=== PATIENT | female | born 1965 | race Caucasian/White ===

== ENCOUNTER 2018-02-13 14:16 | Outpatient (CLI) | payer OTHER ==
--- NOTE | 2018-02-13 16:09 | Ultrasound Report ---
Procedure Date: 02/13/2018 Accession Number: [id number] / [id number] Procedure: US - Breast Unilateral Limited CPT Code: FULL RESULT: EXAM: Breast Unilateral Limited DATE: 02/13/2018 3:28 PM CLINICAL HISTORY: LEFT BREAST TECHNIQUE: Grayscale ultrasound and limited color Doppler images of the region of interest in the left breast were obtained. COMPARISON: Correlation is made to the mammogram of the left breast obtained the same day. FINDINGS: There is a 1.7 x 1.0 x 1.6 cm simple cyst with increased through transmission and no vascularity on color Doppler imaging of the underlying the palpable region. IMPRESSION: Simple benign cyst. No further imaging required. BI-RADS 2
--- NOTE | 2018-02-13 16:18 | Mammography Report ---
Procedure Date: 02/13/2018 Accession Number: [id number] / [id number] Procedure: TRACIE - Diagnostic Dig LT CPT Code: FULL RESULT: EXAM: Diagnostic Dig LT DATE: 02/13/2018 3:23 PM CLINICAL HISTORY: Left breast palpable lump. TECHNIQUE: Left CC, left MLO, left LML views were obtained. COMPARISON: 08/25/2017, 09/29/2014, 12/30/2012, 12/27/2011, 10/09/2010. FINDINGS: The left breast demonstrates heterogeneously dense fibroglandular parenchyma. There is a well-circumscribed 1.8 x 1.3 cm mass at the left breast 1:00 position. A few punctate, typically benign calcifications are noted. Please also refer to the left breast ultrasound performed the same day. IMPRESSION: Benign findings with a simple cyst on ultrasound accounting for the mammographic finding. RECOMMENDATION: Recommend routine annual Screening mammography unless otherwise clinically indicated. The patient should return for annual bilateral screening in August 2018 based on the last time the right breast was imaged. BIRADS CATEGORY 2: Benign findings STANDARD QUALIFYING STATEMENTS: 1. This examination was reviewed with the aid of Computer-Aided Detection (CAD). 2. A negative or benign imaging report should not delay biopsy if clinically suspicious findings are present. Consider surgical consultation if warrented. More than 5% of cancers are not identified by imaging. 3. Dense breasts may obscure an underlying neoplasm.
== END 2018-02-13 14:17 | disposition home or self-care (01) ==
LOC: DI 14:16
PROVIDERS: ATTEND Internal Medicine Gastroenterology
DX: N60.02 Solitary cyst of left breast (principal)
CPT/HCPCS: 76642